=== PATIENT | female | born 1945 | race Asian ===

== ENCOUNTER 2019-02-09 16:42 | Inpatient (IN) | payer MEDICARE, MEDICAID ==
[~2019-02-09] VITALS: Ht 162.6 cm; Wt 56.7 kg
--- NOTE | 2019-02-09 19:29 | NUR ---
GPS/NETWORKING TECHNOLOGY INSTRUCTOR NOTE: ADMITTED DIRECTLY FROM [facility] ON 5150 HOLD FOR DTS. PER HOLD PATIENT WAS DOWN IN HER APARTMENT WITH STOVE ON AND POSSIBLE CARBON MONOXIDE POISONING. PATIENT CAME TO THE UNIT VIA GURNEY ACCOMPANIED BY 2 PARAMEDICS. PLACED PATIENT COMFORTABLY IN BED. PATIENT IS A/O X3, SLEEPY FROM INJECTIONS GIVEN PRIOR COMING HERE. SPEAKS MOSTLY KYRGYZ, UNDERSTANDS AND SPEAKS ICELANDIC TOO. NO APPARENT DISTRESS NOTED, 121/79, 97.9, 18, 59, 97% SATURATION ON ROOM AIR. PATIENT IS CALM, COOPERATIVE, PLEASANT, APPROPRIATE, HAS HISTORY OF SUICIDE IN THE PAST X2. GAVE THE NAME AND TEL. NO. OF HER BROTHER, ARMANDO OSHEA [phone]. CALLED AND LEFT A MESSAGE TO THE BROTHER OF HER ADMISSION TO [facility]. MRSA SCREEN DONE, MED RECON NEEDS FOLLOW-UP RITO AM. PATIENT IS UNDER THE PSYCHIATRIC CARE OF DR. DELACRUZ AND MEDICAL CARE OF DR. STRATTON. PATIENT REFUSED TO SIGN LEGAL CONSENT, DUE TO PATIENT SLEEPY FROM IM INJECTIONS GIVEN TO HER PRIOR ADMISSION. PATIENT IS AMBULATORY/STEADY GAIT. SKIN ASSESSMENT DONE. NOTED DISCOLORATION ON BUE AND BLE, OTHERWISE SKIN INTACT. BELONGINGS INVENTORIED AND CHECKED FOR CONTRABAND. PATIENT'S RIGHTS AND MEDICATION GUIDE GIVEN, PATIENT IS SLEEPY, POOR ATTENTION DURING EXPLANATION. ENVIRONMENTAL SAFETY CHECK DONE. SAFETY MEASURES TAKEN TO PREVENT FALL/INJURY. BED ALARM ON. BED LOCKED AND PLACED ON LOWEST POSITION. WILL CONTINUE TO MONITOR FOR SAFETY AND BEHAVIOR.
[2019-02-09 20:48] VITALS: BP 121/79
[2019-02-09 20:49] VITALS: BP 121/79
[2019-02-09] MEDS ORDERED: CLOP75TA15 PO (23:15)
[2019-02-09] MEDS ORDERED: DOCU250C88 PO (23:15)
[2019-02-09] MEDS ORDERED: PSYL1PAC8 PO (23:15)
[2019-02-09] MEDS ORDERED: ICOS1CAP PO (23:15)
[2019-02-10] MEDS ORDERED: MAGNESIUM HYDROXIDE 30 ML UDC PO PRN (01:30)
[2019-02-10] MEDS ORDERED: ACETAMINOPHEN 325 MG TABLET PO PRN (01:30)
[2019-02-10] MEDS ORDERED: MAG HYDROX/AL HYDROX/SIMETH 30 ML UDC PO PRN (01:30)
[2019-02-10] MEDS ORDERED: BLOOD SUGAR DIAGNOSTIC 1 EACH STRIP IN ONE (01:30)
--- NOTE | 2019-02-10 01:56 | NUR ---
GPS/RN NOTE: PATIENT REFUSED ACCUCHECK.
[2019-02-10 08:00] VITALS: BP 153/90
[2019-02-10 11:26] LABS: ALBUMIN 4.1 g/dL (3.4-5.0); BILIRUBIN,TOTAL 0.3 mg/dL (0.2-1.0); CALCIUM, SERUM 8.4 mg/dL (8.5-10.1); CREATININE 0.9 mg/dL (0.6-1.3); MAGNESIUM 1.9 mg/dL (1.8-2.4); PHOSPHORUS 2.4 mg/dL (2.5-4.9); POTASSIUM 3.9 mmol/L (3.5-5.1); TOTAL PROTEIN, SERUM 7.3 g/dL (6.4-8.2)
[2019-02-10 11:28] LABS: BASOPHILS # (AUTO) 0.1 /CMM (0.0-0.2); BASOPHILS % (AUTO) 0.6 % (0.0-2.0); EOSINOPHILS % (AUTO) 0.1 % (0.0-6.0); HEMATOCRIT 39 % (33-45); LYMPHOCYTES # (AUTO) 1.8 /CMM (0.8-4.8); LYMPHOCYTES % (AUTO) 20.2 % (20.0-44.0); MEAN CORPUSCULAR HGB CONC 33 g/dl (31.0-36.0); MEAN CORPUSCULAR VOLUME 92 fL (82-100); MONOCYTES # (AUTO) 0.6 /CMM (0.1-1.30); MONOCYTES % (AUTO) 6.1 % (2.0-12.0); NEUTROPHILS # (AUTO) 6.6 /CMM (1.8-8.9); PLATELET COUNT (AUTO) 245 /CMM (150-450); RED BLOOD CELL COUNT(AUTO) 4.24 MIL/uL (4.0-5.2); WHITE BLOOD COUNT (AUTO) 9.1 K/uL (4.3-11.0)
--- NOTE | 2019-02-10 11:34 | NUR ---
FAMILY CONTACT: ALEJANDRA contacted pts brother [facility] [place], [place] [phone] for collateral information and discharge planning. Per brother he stated that pt does not have history of psychiatric hospitalizations and that he does not believe pt attempted suicide. Brother stated that pt does have a history of depression but is receiving mental health services and also stated that pt does not have a history of suicidal ideation/attempt/ or plan. Brother stated that pt was dizzy and fell.
[2019-02-10 11:35] LABS: THYROID STIMULATING HORMONE 1.214 uIU/mL (0.358-3.74)
--- NOTE | 2019-02-10 12:12 | NUR ---
FAMILY MEETING: SW met with pts cousin Keo and pt at bedside, pts cousin stated that pt has never been in a psych hospital and that she did not try to commit suicide. Cousin stated that pt became dizzy and fell and then was found by family and taken to the hospital because they believed she had carbon monoxide poisoning.
[2019-02-10] MEDS ORDERED: K PHOS NEUTRAL 250 MG TABLET PO ONE (12:30)
[2019-02-10] MEDS: LORAZEPAM 0.5 MG TABLET PO PRN ×2 (12:38→21:22)
--- NOTE | 2019-02-10 12:42 | NUR ---
PATIENT C/O ANXIETY, PRN ATIVAN GIVEN.
--- NOTE | 2019-02-10 13:58 | NUR ---
INITIAL DISCHARGE PLAN: Patient wishes to return back home [address] [place] [address]. SW will help form a safe and proper discharge in collaboration with .
[2019-02-10 16:00] VITALS: BP 146/91
--- NOTE | 2019-02-10 19:42 | NUR ---
GPS/RN NOTE: PATIENT AWAKE, ALERT, AMBULATING AROUND, STEADY GAIT. NO APPARENT DISTRESS NOTED.
[2019-02-10 19:57] VITALS: BP 134/91
[2019-02-10] MEDS: TEMAZEPAM 7.5 MG CAPSULE PO PRN (20:15)
--- NOTE | 2019-02-10 20:16 | NUR ---
GPS/RN NOTE: PATIENT REQUESTED FOR HER SLEEPING PILL, SAID SHE IS READY FOR BED. TEMAZEPAM 7.5 MG CAP PO GIVEN.
--- NOTE | 2019-02-10 21:22 | NUR ---
GPS/RN NOTE: STILL UNABLE TO SLEEP, UP AND ABOUT. LORAZEPAM 0.5 MG TAB PO GIVEN.
[2019-02-10] MEDS: DOCUSATE SODIUM 250 MG CAPSULE PO SCH (21:26)
[2019-02-11 07:25] LABS: CHOLESTEROL 159 mg/dL (<200); HDL CHOLESTEROL 87 mg/dL (40-60); LDL 60 mg/dL (0-99); TRIGLYCERIDES 62 mg/dL (30-150)
[2019-02-11 07:33] LABS: ALBUMIN 4.3 g/dL (3.4-5.0); BILIRUBIN,TOTAL 0.5 mg/dL (0.2-1.0); CALCIUM, SERUM 8.8 mg/dL (8.5-10.1); CREATININE 0.7 mg/dL (0.6-1.3); POTASSIUM 3.7 mmol/L (3.5-5.1); TOTAL PROTEIN, SERUM 7.4 g/dL (6.4-8.2)
[2019-02-11 08:00] VITALS: BP 155/86
[2019-02-11] MEDS: CLOPIDOGREL BISULFATE 75 MG TABLET PO SCH (08:16)
[2019-02-11] MEDS: ESCITALOPRAM OXALATE (10 MG) 10 MG TABLET PO SCH (09:56)
[2019-02-11 14:56] LABS: APPEARANCE,URINE SL CLOUDY (CLEAR); BILIRUBIN,URINE NEGATIVE (NEGATIVE); BLOOD, URINE TRACE Ery/uL (NEGATIVE); KETONES,URINE NEGATIVE (NEGATIVE); LEUKOCYTE ESTERASE ,URINE NEGATIVE (NEGATIVE); NITRITE, URINE NEGATIVE (NEGATIVE); PH,URINE 6.5 (5.0-8.0); PROTEIN,URINE NEGATIVE (NEGATIVE); UGLUCOSE NEGATIVE (NEGATIVE); UROBILINOGEN,URINE 0.2 EU/dL (0.2)
[2019-02-11 15:04] LABS: COLOR,URINE STRAW (YELLOW)
[2019-02-11] MEDS: LORAZEPAM 0.5 MG TABLET PO PRN (15:26)
--- NOTE | 2019-02-11 15:27 | NUR ---
GPS/RN NOTE: PT FEELING ANXIOUS, LORAZEPAM 0.5 MG TAB PO GIVEN.WILL CONTINUE MONITORING .
[2019-02-11 15:31] LABS: BACTERIA,URINE None seen /HPF (None Seen); RBC,URINE 0-2 /HPF (0-2); WBC,URINE 0-2 /HPF (0-3)
[2019-02-11 15:32] LABS: SQUAMOUS EPITHELIAL CELL,UR Moderate /HPF (None Seen)
--- NOTE | 2019-02-11 17:47 | NUR ---
GPS RN NOTE: PT BP 167/94 P72 DIVER ASSISTANT SAVANNAH NOTIFIED PER DIVER ASSISTANT WILL PUT THE ORDERS. CONTINUE MONITORING .
[2019-02-11] MEDS: CLONIDINE HCL 0.1 MG TABLET PO PRN (18:40)
[2019-02-11 20:12] VITALS: BP 161/93
[2019-02-11] MEDS: CARVEDILOL 3.125 MG TABLET PO SCH (20:19)
[2019-02-11] MEDS: TEMAZEPAM 7.5 MG CAPSULE PO PRN (20:20)
--- NOTE | 2019-02-11 20:20 | NUR ---
GPS/RN NOTE: BP 161/93, PULSE 89, COREG 3.125 MG TAB PO GIVEN. PATIENT ALSO REQUESTED FOR HER SLEEPING PILL. TEMAZEPAM 7.5 MG CAP PO GIVEN.
[2019-02-11] MEDS: DOCUSATE SODIUM 250 MG CAPSULE PO SCH (22:03)
[2019-02-12] MEDS: LORAZEPAM 0.5 MG TABLET PO PRN (01:38)
--- NOTE | 2019-02-12 01:38 | NUR ---
GPS/RN NOTE: AWAKE, FEELING ANXIOUS, ATIVAN 0.5 MG TAB PO GIVEN.
[2019-02-12 08:00] VITALS: BP 152/89
[2019-02-12] MEDS: ESCITALOPRAM OXALATE (10 MG) 10 MG TABLET PO SCH (08:08)
[2019-02-12] MEDS: CLOPIDOGREL BISULFATE 75 MG TABLET PO SCH (08:08)
[2019-02-12] MEDS: CARVEDILOL 3.125 MG TABLET PO SCH ×2 (08:08→20:24)
--- NOTE | 2019-02-12 14:20 | NUR ---
Group Note: SW went to patient's room to invite patient to attend today's support group at 1:00pm regarding holidays sensory activity and gratefulness being held in the activities room. However, pt. was being visited by family and stated, " I rather spend time with my family". SW was agreeable to plan.
--- NOTE | 2019-02-12 15:24 | NUR ---
GPS RN NOTE: PATIENT NOTIFIED OF 5250 HOLD. PATIENT IS VERY UPSET AND TEARFUL. ATTEMPTING TO CONSOLE SELF BY EXPRESSING FEELINGS. WILL CONTINUE TO MONITOR Q15
[2019-02-12 16:00] VITALS: BP 110/61
[2019-02-12 21:12] VITALS: BP 188/96
[2019-02-12] MEDS: DOCUSATE SODIUM 250 MG CAPSULE PO SCH (21:34)
[2019-02-12] MEDS: CLONIDINE HCL 0.1 MG TABLET PO PRN (21:57)
--- NOTE | 2019-02-12 21:57 | NUR ---
GPS RN NOTES: PATIENTS SBP >160. NO S/S PF PAIN. NO S/S OF RESP DISTRESS OR LABOR BREATHING. ADMINISTERED CATAPRES 0.1MG PO PRN FOR HTN. PT TOLERATED WELL CONT TO SAT.
--- NOTE | 2019-02-12 23:00 | NUR ---
GPS RN NOTES: CHECKED PT VITALS WITH B/P 145/45, HEART RATE 57, TEMPT 97.7, RESP 18. NO S/S OF PAIN NOTED. BREATHING EVEN AND UNLABORED. WHEN ASKED PT HOW SHE IS FEELING PT STATED, " I FEEL GOOD THANK YOU. IM GOING TO SLEEP NOW." CONTINUE TO MONITOR
[2019-02-12 23:20] VITALS: BP 145/85
[2019-02-13] MEDS: TEMAZEPAM 7.5 MG CAPSULE PO PRN (01:44)
--- NOTE | 2019-02-13 01:46 | NUR ---
GPS RN NOTES: PT STATED, "I CANT SLEEP. CAN I HAVE MY SLEEPING MEDICATION?" CHECKED VITALS AND WNL. OFFERED RESTORIL 7.5 MG PO PRN. ADMIN MEDICATION. TOLERATED WELL. CONT TO MONITOR.
[2019-02-13 01:55] VITALS: BP 131/89
[2019-02-13 08:00] VITALS: BP 159/79
[2019-02-13 08:40] VITALS: BP 159/79
[2019-02-13] MEDS: CARVEDILOL 3.125 MG TABLET PO SCH (08:40)
[2019-02-13] MEDS: ESCITALOPRAM OXALATE (10 MG) 10 MG TABLET PO SCH (08:40)
[2019-02-13] MEDS: CLOPIDOGREL BISULFATE 75 MG TABLET PO SCH (08:40)
--- NOTE | 2019-02-13 10:06 | NUR ---
Family Contact: Pts brother Олег ([phone]) called the SW and stated that he would like to be updated regarding the pts discharge plan. SW stated that the MD is planning on discharging the pt on Saturday.
--- NOTE | 2019-02-13 14:52 | NUR ---
Group Note: SW went to patient's room to invite patient to attend today's support group at 1:00pm regarding mindfulness. However, pt. was being visited by family again. Pt. expressed she wanted to spend time with her loved ones. SW encouraged the pt. to attend group once the family has left. Pt. was agreeable to plan but did not attend.
--- NOTE | 2019-02-13 15:28 | NUR ---
GPS ACID BATH MIXER NOTE: PATIENT IS A 73 YEAR OLD FEMALE DISCHARGED TO HOME, ACCOMPANIED BY SISTER AND 3 OTHER MEMBERS OF FAMILY. PATIENT IS IN STABLE CONDITION. VSS. NO ACUTE DISTRESS NOTED. NO COMPLAINTS. COMPLIANT WITH MEDICATION MANAGEMENT. COOPERATIVE WITH PLAN OF CARE. PSYCHIATRIC TREATMENT PLANS MET. MEDICAL TREATMENT PLANS DEFERRED FOR CONTINUAL MONITORING. DENIES SI/HI VAH AT THE TIME OF DISCHARGE. SKIN CHECK UPON DISCHARGE WAS REFUSED. EDUCATED PATIENT ABOUT AFTERCARE WITH COPY PROVIDED. RETURNED PERSONAL BELONGINGS TO PATIENT. MEDICATIONS RECONCILED WITH ALONG WITH PSYCHIATRIC DISCHARGE ORDERS. DISCHARGE PAPERWORK SIGNED. FOR FOLLOW UP WITH PSYCHIATRIST AND JAVA PROGRAMMER ANALYST WITHIN 1 WEEK. PATIENT LEFT THE [facility] GPS VIA PRIVATE CARE.
--- NOTE | 2019-02-13 16:23 | NUR ---
Discharge Note: Pt was discharged back to her home located at [address] [place] [address]. Pt was picked up by her sister, Bandar Crowley ([phone]), at around 3pm. Upon discharge, Pts mood was euthymic with congruent affect. Pt denied visual/auditory hallucinations and denied suicidal/homicidal ideations. Pt will continue to be under the care of her psychiatrist, Dr. Bowen Thornton, located at [address], [place] [address]; ; fax: . Pt has an appointment on 02/24/19 at 10AM. Pt will also follow up with her trades helper, Dr. Maria Alejandra Crowley, located at [address], [place] [address]; .
== END 2019-02-13 15:00 | disposition home or self-care (01) | DRG 885 ==
LOC: GPS 19:19
PROVIDERS: ADMIT Psychiatry & Neurology Psychiatry; ATTEND Registered Nurse
DX: F33.2 Major depressive disorder, recurrent severe without psychotic features (principal); R53.1 Weakness; T58 Toxic effect of carbon monoxide; R79.89 Other specified abnormal findings of blood chemistry
CPT/HCPCS: 36415; 80053-TC; 80061-TC; 81000-TC; 83735-TC; 84100-TC; 84443-TC; 85025-TC; 87081-TC; 97116-TC; 97530-TC